=== PATIENT | female | born 1940 | race Caucasian/White ===

== ENCOUNTER 2017-06-12 12:35 | Emergency (ER) | payer MEDICARE ==
[~2017-06-12] VITALS: Ht 152.4 cm; Wt 54.0 kg
[~2017-06-12 12:35] MED LIST: ASCO1TAB2 PO; ERGO2000 PO; OMEP-110 PO; SIMV10TA PO; VIT1TABL32 PO; [UNRECOGNIZED DRUG - CODE] IV
[2017-06-12] MEDS ORDERED: SODIUM CHLORIDE FLUSH 10ML SYR IVF ONE (13:30)
[2017-06-12 13:40] LABS: ASPARTATE AMINO TRANSFERASE 19 U/L (15-37); BLOOD UREA NITROGEN 10 mg/dL (7-18)
[2017-06-12 13:47] LABS: IS PT STATUS REG ER OR PRE ER? YES
[2017-06-12 13:53] LABS: HEMATOCRIT 37.6 % (34.6-47.8); HEMOGLOBIN 12.8 g/dL (11.7-16.4); WHITE BLOOD COUNT 6.3 x10^3/uL (3.4-10)
[2017-06-12] MEDS ORDERED: OMNIPAQUE 350 MG/ML, 100ML BOTTLE ONE (15:59)
[2017-06-12 17:21] VITALS: BP 125/76
== END 2017-06-12 17:23 | disposition home or self-care (01) ==
LOC: ED 15:35
DX: R07.89 Other chest pain (principal); K21.9 Gastro-esophageal reflux disease without esophagitis; Z90.710 Acquired absence of both cervix and uterus
CPT/HCPCS: 36415; 71275; 80053; 84484; 85025; 99285; Q9967

== ENCOUNTER 2017-07-21 10:48 | Observation (INO) | payer MEDICARE ==
[~2017-07-21] VITALS: Ht 160 cm; Wt 54.9 kg
[2017-07-21] MEDS ORDERED: OMEP40CA6 PO (11:08)
[2017-07-21] MEDS ORDERED: CHOL10003 PO (11:09)
[2017-07-21] MEDS ORDERED: HYDROmorphone 2 MG/ML, 1ML ONE (12:47)
[2017-07-21] MEDS ORDERED: ONDANSETRON ODT 4 MG ONE (12:47)
[2017-07-21] MEDS ORDERED: HYDROmorphone 1 MG/ML, 1ML IM ONE (13:00)
[2017-07-21] MEDS ORDERED: ONDANSETRON ODT 4 MG PO ONE (13:00)
[2017-07-21 16:05] LABS: BASOPHILS # (AUTO) 0.02 x10^3/uL (0-0.1); BASOPHILS % (AUTO) 0 % (0-1); EOSINOPHILS # (AUTO) 0.01 x10^3/uL (0-0.4); EOSINOPHILS % (AUTO) 0 % (1-7); LYMPHOCYTES # (AUTO) 1.59 x10^3/uL (1-3.4); LYMPHOCYTES % (AUTO) 24 % (22-44); MD NO; MEAN CORPUSCULAR HEMOGLOBIN 28.6 pg (27.0-34.8); MEAN CORPUSCULAR HGB CONC 33.1 g/dL (32.4-35.8); MEAN CORPUSCULAR VOLUME 86.5 fL (80-100); MEAN PLATELET VOLUME 8.1 fL (7.4-10.4); MONOCYTES # (AUTO) 0.53 x10^3/uL (0.2-0.8); MONOCYTES % (AUTO) 8 % (2-9); NEUTROPHILS # (AUTO) 4.37 x10^3/uL (1.8-6.8); NEUTROPHILS % (AUTO) 67 % (42-75); PLATELET COUNT 118 x10^3/uL (130-400); RED BLOOD COUNT 4.26 x10^6/uL (3.82-5.3); RED CELL DISTRIBUTION WIDTH 18.3 % (9.6-15.2)
[2017-07-21 16:22] LABS: ALBUMIN 3.2 g/dL (3.4-5.0); ANION GAP 6 mmol/L (5-15); CALCIUM 8.8 mg/dL (8.5-10.1); CHLORIDE 112 mmol/L (98-107); CREATININE 0.77 mg/dL (0.55-1.02)
[2017-07-21] MEDS ORDERED: HYDROcodone/APAP 5/325 TABLET PO PRN (16:30)
[2017-07-21] MEDS ORDERED: morphine SULFATE 10 MG/ML, 1ML IVPush PRN (16:30)
[2017-07-21] MEDS ORDERED: hydrALAzine 20 MG/ML, 1ML IVPush PRN (16:30)
[2017-07-21] MEDS ORDERED: BISACODYL 10 MG SUPP PR PRN (16:30)
[2017-07-21] MEDS ORDERED: ONDANSETRON 2MG/ML, 2ML IVPush PRN (16:30)
[2017-07-21] MEDS ORDERED: ENOXAPARIN 40 MG/0.4 ML SQ SCH (17:30)
[2017-07-21 17:46] VITALS: BP 119/73
[2017-07-21] MEDS: METHOCARBAMOL 500 MG TABLET PO PRN (18:01)
[2017-07-21 18:09] VITALS: BP 119/73
[2017-07-21] MEDS ORDERED: SENNA/DOCUSATE TABLET ONE (18:40)
[2017-07-21] MEDS: SENNA/DOCUSATE TABLET PO SCH (18:45)
[2017-07-21 21:40] VITALS: BP 107/63
[2017-07-21] MEDS: ACETAMINOPHEN 325 MG TABLET PO PRN (22:47)
[2017-07-22 01:49] VITALS: BP 101/58
[2017-07-22] MEDS: METHOCARBAMOL 500 MG TABLET PO PRN ×2 (03:22→12:17)
[2017-07-22 07:41] VITALS: BP 114/63
[2017-07-22] MEDS: ACETAMINOPHEN 325 MG TABLET PO PRN ×2 (07:54→15:03)
[2017-07-22] MEDS: SENNA/DOCUSATE TABLET PO SCH (07:57)
[2017-07-22] MEDS ORDERED: ASCORBIC ACID 500 MG TABLET PO SCH (09:00)
[2017-07-22] MEDS ORDERED: OMEPRAZOLE 20 MG CAPSULE.DR PO SCH (09:00)
[2017-07-22] MEDS ORDERED: MULTIVITAMINS/MINERALS TABLET PO SCH (09:00)
[2017-07-22] MEDS ORDERED: CHOLECALCIFEROL 1,000 UNIT TABLET PO SCH (09:00)
[2017-07-22] MEDS ORDERED: SENNA/DOCUSATE TABLET PO SCH ×2 (09:00)
[2017-07-22] MEDS ORDERED: METH500T7 PO (10:51)
[2017-07-22] MEDS ORDERED: METH4TAB2 PO (10:51)
[2017-07-22 14:35] VITALS: BP 102/45
[2017-07-22] MEDS ORDERED: HYDR-3240 PO (16:31)
[2017-07-22] MEDS ORDERED: CALC500T PO (16:32)
== END 2017-07-22 17:45 | disposition home or self-care (01) ==
LOC: ED 10:57 → EDIP 16:15 → 3NW 17:21
PROVIDERS: ADMIT Internal Medicine; ATTEND Internal Medicine
DX: D46.9 Myelodysplastic syndrome, unspecified (principal); M54.5 Low back pain; K21.9 Gastro-esophageal reflux disease without esophagitis; K22.70 Barrett's esophagus without dysplasia; R09.02 Hypoxemia; Z80.0 Family history of malignant neoplasm of digestive organs; Z82.49 Family history of ischemic heart disease and other diseases of the circulatory system; Z90.710 Acquired absence of both cervix and uterus; Z66 Do not resuscitate
CPT/HCPCS: 36415; 72158; 80048; 82040; 85025; 96372; 97162; 99285; G0378; J1170; J1650; J7512; Q0162

== ENCOUNTER 2019-05-19 11:40 | Observation (INO) | payer MEDICARE ==
[~2019-05-19] VITALS: Ht 157.5 cm; Wt 56.4 kg
[~2019-05-19 11:40] MED LIST changes: +CALC500T29 PO; +CHOL10003 PO; +HYDR-3240 PO; +METH4TAB2 PO; +METH500T7 PO; +OMEP40CA6 PO
--- NOTE | 2019-05-19 12:01 | NUR ---
PT WAS SENT BUY RADIALOGIST FOR ABDNORMAL IMAGE. PT HAS HAD CO OF HEADACHE SINCE . PT HAS SUBDURAL HEMATOMA ACCORDING TO MD. PT IS STABLE. A&OX4, NO VISION CHANGES. NO BRUSING, OR ANY SIGNS OF TRAUMA. PT DENIES INJURY OR HITTING HEAD. VS STABLE. PT HAS DIAGNOSIS OF MDS W THROMBOCYTOPENIA
[2019-05-19 12:27] LABS: BASOPHILS # (AUTO) 0.01 x10^3/uL (0-0.1); BASOPHILS % (AUTO) 0 % (0-1); EOSINOPHILS # (AUTO) 0.02 x10^3/uL (0-0.4); EOSINOPHILS % (AUTO) 1 % (1-7); LYMPHOCYTES # (AUTO) 1.42 x10^3/uL (1-3.4); LYMPHOCYTES % (AUTO) 34 % (22-44); MD NO; MEAN CORPUSCULAR HEMOGLOBIN 28.3 pg (27.0-34.8); MEAN CORPUSCULAR HGB CONC 32.9 g/dL (32.4-35.8); MEAN CORPUSCULAR VOLUME 86.2 fL (80-100); MEAN PLATELET VOLUME 8.6 fL (7.4-10.4); MONOCYTES # (AUTO) 0.49 x10^3/uL (0.2-0.8); MONOCYTES % (AUTO) 12 % (2-9); NEUTROPHILS # (AUTO) 2.28 x10^3/uL (1.8-6.8); NEUTROPHILS % (AUTO) 54 % (42-75); PLATELET COUNT 100 x10^3/uL (130-400); RED BLOOD COUNT 4.32 x10^6/uL (3.82-5.3); RED CELL DISTRIBUTION WIDTH 20.9 % (9.6-15.2)
[2019-05-19 12:39] LABS: ALBUMIN 3.7 g/dL (3.4-5.0); ANION GAP 5 mmol/L (5-15); CALCIUM 8.6 mg/dL (8.5-10.1); CHLORIDE 111 mmol/L (98-107); CREATININE 0.78 mg/dL (0.55-1.02)
[2019-05-19 12:40] LABS: INTERNATIONAL NORMALIZED RATIO 0.98 (0.93-1.1); PROTHROMBIN TIME 10.3 Seconds (9.6-11.5)
--- NOTE | 2019-05-19 13:35 | NUR ---
PT RESTING W FAMILY AT BEDSIDE. GIVEN WATER. PT VS STABLE AT THIS TIME
[2019-05-19] MEDS ORDERED: HYDROcodone/APAP 5/325 TABLET PO ONE (14:00)
[2019-05-19] MEDS ORDERED: ONDANSETRON ODT 4 MG PO PRN (15:00)
[2019-05-19] MEDS ORDERED: ONDANSETRON 2MG/ML, 2ML IVPush PRN (15:00)
[2019-05-19] MEDS ORDERED: ENALAPRILAT 1.25 MG/ML, 2ML IVPush PRN (15:00)
[2019-05-19] MEDS ORDERED: ACETAMINOPHEN 325 MG TABLET PO PRN (15:00)
[2019-05-19] MEDS ORDERED: FAMOTIDINE 20 MG TABLET PO PRN (15:00)
[2019-05-19] MEDS ORDERED: [UNRECOGNIZED DRUG - CODE] PO (15:02)
--- NOTE | 2019-05-19 15:30 | NUR ---
report given to admitting rn marcia. patient updated on plan of care. no noted acute distress. tolerating interventions well.
[2019-05-19 15:37] VITALS: BP 132/70
[2019-05-19 16:16] VITALS: BP 132/70
[2019-05-19 19:29] VITALS: BP 116/68
[2019-05-19 22:41] VITALS: BP 115/58
[2019-05-20 01:36] VITALS: BP 108/62
[2019-05-20 05:18] LABS: BASOPHILS # (AUTO) 0.02 x10^3/uL (0-0.1); BASOPHILS % (AUTO) 0 % (0-1); EOSINOPHILS # (AUTO) 0.05 x10^3/uL (0-0.4); EOSINOPHILS % (AUTO) 1 % (1-7); LYMPHOCYTES # (AUTO) 2.31 x10^3/uL (1-3.4); LYMPHOCYTES % (AUTO) 44 % (22-44); MD NO; MEAN CORPUSCULAR HEMOGLOBIN 28.4 pg (27.0-34.8); MEAN CORPUSCULAR HGB CONC 32.5 g/dL (32.4-35.8); MEAN CORPUSCULAR VOLUME 87.4 fL (80-100); MEAN PLATELET VOLUME 8.8 fL (7.4-10.4); MONOCYTES # (AUTO) 0.65 x10^3/uL (0.2-0.8); MONOCYTES % (AUTO) 12 % (2-9); NEUTROPHILS # (AUTO) 2.26 x10^3/uL (1.8-6.8); NEUTROPHILS % (AUTO) 43 % (42-75); PLATELET COUNT 103 x10^3/uL (130-400); RED BLOOD COUNT 4.15 x10^6/uL (3.82-5.3); RED CELL DISTRIBUTION WIDTH 20.1 % (9.6-15.2)
[2019-05-20 07:23] VITALS: BP 100/62
[2019-05-20 13:18] VITALS: BP 97/45
[2019-05-20] MEDS ORDERED: LEVE500T53 PO (13:38)
== END 2019-05-20 15:00 | disposition home or self-care (01) ==
LOC: ED 14:12 → EDIP 14:19 → INTOOBSV 14:19 → 3N 15:32 → 4NW 22:34 → DCLOUNGE 05-20 14:45
PROVIDERS: ADMIT Internal Medicine; ATTEND Internal Medicine
DX: D46.9 Myelodysplastic syndrome, unspecified (principal); K22.70 Barrett's esophagus without dysplasia; K21.9 Gastro-esophageal reflux disease without esophagitis; D69.6 Thrombocytopenia, unspecified; I62.02 Nontraumatic subacute subdural hemorrhage; I62.03 Nontraumatic chronic subdural hemorrhage; D61.818 Other pancytopenia; Z88.2 Allergy status to sulfonamides
CPT/HCPCS: 36415; 70450; 80048; 82040; 85025; 85610; 85730; 93005; 99284; G0378

== ENCOUNTER 2021-04-08 08:58 | Emergency (ER) | payer MEDICARE ==
[~2021-04-08] VITALS: Ht 154.9 cm; Wt 51.1 kg
[~2021-04-08 08:58] MED LIST changes: +ACET325T26 PO; +HYDR-2214 PO; -HYDR-3240 PO; +LEVE500T53 PO; +METH-639 PO; -METH500T7 PO; +OMEP10CA5 PO; -OMEP40CA6 PO; +OMEP40CA8 PO; +[UNRECOGNIZED DRUG - CODE] PO
[2021-04-08] MEDS ORDERED: SODIUM CHLORIDE FLUSH 10ML SYR IVF ONE (09:30)
[2021-04-08] MEDS ORDERED: MORPHINE SULFATE 4 MG/ML, 1ML IVPush PRN (09:30)
[2021-04-08] MEDS ORDERED: ONDANSETRON 2MG/ML, 2ML IVPush ONE (09:30)
[2021-04-08] MEDS ORDERED: no (09:53)
[2021-04-08 10:10] LABS: BASOPHILS % (AUTO) 1 % (0-1); EOSINOPHILS % (AUTO) 0 % (1-7); LYMPHOCYTES % (AUTO) 48 % (22-44); MEAN CORPUSCULAR HEMOGLOBIN 28.2 pg (27.0-34.8); MEAN CORPUSCULAR HGB CONC 33.8 g/dL (32.4-35.8); MEAN PLATELET VOLUME 8.5 fL (7.4-10.4); MONOCYTES % (AUTO) 14 % (2-9); NEUTROPHILS % (AUTO) 38 % (42-75); PLATELET COUNT 108 x10^3/uL (130-400); RED BLOOD COUNT 4.01 x10^6/uL (3.82-5.3); RED CELL DISTRIBUTION WIDTH 20.5 % (9.6-15.2)
[2021-04-08 10:23] LABS: ALANINE AMINOTRANSFERASE 53 U/L (12-78); ALBUMIN 3.7 g/dL (3.4-5.0); ANION GAP 7 mmol/L (5-15); CALCIUM 8.9 mg/dL (8.5-10.1); CHLORIDE 104 mmol/L (98-107); CREATININE 0.64 mg/dL (0.55-1.02)
[2021-04-08 10:25] LABS: ALKALINE PHOSPHATASE 69 U/L (45-117); BILIRUBIN,TOTAL 0.3 mg/dL (0.2-1.0); TOTAL PROTEIN 7.5 g/dL (6.4-8.2)
[2021-04-08 10:36] LABS: <PLATELET ESTIMATE> DECREASED; <PLT MORPHOLOGY> NORMAL PLT MORPH; ANISOCYTOSIS 1+; OVALOCYTES 1+
[2021-04-08 12:29] VITALS: BP 146/55
== END 2021-04-08 12:55 | disposition home or self-care (01) ==
LOC: ED 09:15
DX: M51.36 Other intervertebral disc degeneration, lumbar region (principal); M54.5 Low back pain; K21.9 Gastro-esophageal reflux disease without esophagitis; K22.70 Barrett's esophagus without dysplasia
CPT/HCPCS: 36415; 72148; 80053; 85025; 99284